=== PATIENT | female | born 1955 | race Caucasian/White ===

== ENCOUNTER 2017-05-14 18:19 | Emergency (ER) | payer OTHER ==
[~2017-05-14] VITALS: Ht 162.6 cm; Wt 77.1 kg
[2017-05-14] MEDS ORDERED: HYDROCHLOROTHIA25 M2 PO (18:31)
[2017-05-14] MEDS ORDERED: ACCUPRIL40 MG PO (18:31)
[2017-05-14] MEDS ORDERED: ZOCOR20 MG PO (18:31)
[2017-05-14] MEDS ORDERED: CELEXA20 MG PO (18:31)
[2017-05-14 19:01] VITALS: BP 123/62
== END 2017-05-14 19:02 | disposition home or self-care (01) ==
LOC: M.ERS 18:19
DX: S01.01XA Laceration without foreign body of scalp, initial encounter (principal); I10 Essential (primary) hypertension; Z90.49 Acquired absence of other specified parts of digestive tract; Z88.2 Allergy status to sulfonamides; W22.8XXA Striking against or struck by other objects, initial encounter; Y93.89 Activity, other specified; Y92.89 Other specified places as the place of occurrence of the external cause; Y99.8 Other external cause status